=== PATIENT | female | born 1955 | race Caucasian/White ===

== ENCOUNTER 2016-06-12 09:59 | Emergency (ER) | payer OTHER ==
[2016-06-12 10:33] VITALS: BP 155/88; PULSE 64; RESP 18; TEMP 98.1; O2SAT 97
--- NOTE | 2016-06-12 11:48 | UCPHY ---
H & P Time Seen by Provider: 06/12/16 11:30 Patient Type: New HPI/ROS: HPI: 61-year-old female presents to urgent care with chief concern sore throat , rhinorrhea, fatigue. Was exposed to strep because her daughter has strep. Symptoms onset 1 week ago reports a rare, intermittently productive cough. Denies fever, chills, dysphagia, shortness of breath, chest pain, abdominal pain , nausea or vomiting. No aggravating or alleviating factors. Has a history of asthma. Has not started using her inhaler because I do not needed. ROS:10 point review of systems is negative other than as stated in HPI Past Medical/Surgical History: Asthma Smoking Status: Former smoker Physical Exam: Vital signs stable, reviewed by me General: Awake, alert, calm, cooperative. No acute distress. Head: Normalocephalic. Atraumatic. EENT: PERRLA. EOMI. No pallor or injection. Anicteric. No nystagmus. No injection. TMs intact bilaterally with normal landmarks. Significant rhinorrhea present with mildly erythematous nasal turbinates. Oropharynx minimal erythema Tonsils 2+ bilaterally, no exudates. Neck: Supple, nontender. No lymphadenopathy. Full range of motion. No meningismus. Respiratory: Breathing unlabored. Breath sounds equal bilaterally and clear to auscultation. No adventitious sounds. CV: Chest nontender, atraumatic. Heart rate regular. No murmur, distal pulses 2+ bilaterally. Brisk cap refill all extremities. GI: Abdomen soft, nontender. Bowel sounds normoactive and positive x4 quadrants. : No suprapubic tenderness. No CVA or flank tenderness. Neuro: Alert. Oriented x 3. Speech clear. Nonfocal cranial nerves throughout. Sensation intact all extremities. Skin: Skin warm, dry, intact. No rashes, abrasions, or lacerations. Skin turgor normal. Extremities: Full range of motion in all 4 extremities. Strength 5+ all extremities. Constitutional: Initial Vital Signs Temperature (C) 36.7 C 06/12/16 10:30 Heart Rate 64 06/12/16 10:30 Respiratory Rate 18 06/12/16 10:30 Blood Pressure 155/88 H 06/12/16 10:30 O2 Sat (%) 97 06/12/16 10:30 O2 Delivery Mode Room Air Allergies/Adverse Reactions: codeine [Codeine] Allergy (Verified 07/13/11 03:59) Home Medications: Medication Instructions Recorded LEVOTHYROXINE SODIUM [Synthroid] 75 mcg PO DAILY 07/13/11 Medical Decision Making ED Course/Re-evaluation: Rapid strep negative Flu negative No anterior cervical lymphadenopathy, significant rhinorrhea present, thus while patient was exposed to strep I believe her symptoms are still viral and will not treat her. She has been counseled regarding when to return for recheck.. Lungs clear to auscultation bilaterally. Differential Diagnosis: Differential diagnosis includes but is not limited to strep pharyngitis, influenza, upper respiratory infection, reactive airway, pneumonia - Data Points Laboratory Results: 06/12/16 06/12/16 Unknown 10:40 Influenza Typ A,B (DFA) NEGATIVE FOR FLU (NEGATIVE) Group A Strep Screen NEGATIVE (NEGATIVE) Group A Strep DNA Pending Departure - Departure Disposition: Home, Routine, Self-Care Clinical Impression: Upper respiratory infection Condition: Good Instructions: Upper Respiratory Infection (ED) Additional Instructions: Plan: Drink plenty of fluids. Rest. You may use over the counter cough and cold medicine for symptom relief. You may use Tylenol or Ibuprofen for fever and pain control. Use saline spray or saline irrigation to each nostril twice daily-morning and evening. For sore throat, gargle with warm salt water three times daily. Return to Urgent Care or ER if you develop chest pain, difficulty breathing, or difficulty swallowing. Follow up as directed--tell the office you are an "ER follow up appointment when you call. Return here promptly for worsening symptoms such as facial/tooth pain, chest pain, shortness of breath, unremitting fever, nausea, vomiting, difficulty swallowing. Referrals: Tiffanie Richardson [Primary Care Provider] - As per Instructions - PQRS PQRS Measurement: 134: Depression screening and followup, PRIME MD-PHQ2 (12 years and older) Over the last 2 weeks, how often have you been bothered by any of the following problems? 1. Feeling down, depressed, or hopeless? 2. Little interest or pleasure in doing things? Patient answered no to both 1 and 2 130: Documentation of medications. Reviewed all patient medications, doses, route and frequency. 226: Do you smoke? No 47: 65 and older: Advanced care planning. Patient declines 51: 18 years old and older with diagnosis of COPD, spirometry performance. Patient has no history of COPD 52: 18 years old and older with COPD and symptoms of COPD or FEV1<60% no history of COPD
== END 2016-06-12 12:01 | disposition home or self-care (01) ==
LOC: CED 09:59
DX: J06.9 Acute upper respiratory infection, unspecified (principal); Z87.891 Personal history of nicotine dependence
CPT/HCPCS: 87400-PO; 87880-PO; 99204-PO; G0463-PO

== ENCOUNTER → 2016-11-15 | Outpatient (CLI) | payer OTHER | LOC: FIMAGING 08:28 | PROVIDERS: ATTEND Family Medicine | DX: Z12.31 Encounter for screening mammogram for malignant neoplasm of breast (principal) | CPT/HCPCS: G0202 ==

== ENCOUNTER → 2017-06-03 | Outpatient (CLI) | payer OTHER | LOC: FIMAGING 08:52 | PROVIDERS: ATTEND Family Medicine | DX: Z13.820 Encounter for screening for osteoporosis (principal); M81.0 Age-related osteoporosis without current pathological fracture; Z78.0 Asymptomatic menopausal state; Z79.899 Other long term (current) drug therapy ==

== ENCOUNTER → 2017-11-23 | Outpatient (CLI) | payer OTHER | LOC: FIMAGING 12:29 | PROVIDERS: ATTEND Family Medicine | DX: Z12.31 Encounter for screening mammogram for malignant neoplasm of breast (principal) ==